=== PATIENT | male | born 1935 | race Caucasian/White ===

== ENCOUNTER 2022-12-17 18:10 | Emergency (ER) | payer MEDICARE ==
[~2022-12-17] VITALS: Ht 172.7 cm; Wt 56.8 kg
[2022-12-17 18:33] VITALS: BP 143/76
== END 2022-12-17 22:51 | disposition home or self-care (01) ==
LOC: EMS 18:19
DX: T17.998A Other foreign object in respiratory tract, part unspecified causing other injury, initial encounter (principal); Z91.011 Allergy to milk products; X58.XXXA Exposure to other specified factors, initial encounter; Y93.89 Activity, other specified; Y92.89 Other specified places as the place of occurrence of the external cause; Y99.8 Other external cause status
CPT/HCPCS: 99283; Z7502